=== PATIENT | female | born 1985 | race Hispanic/Latino ===

== ENCOUNTER 2019-05-20 19:30 | Inpatient (IN) | payer SELFPAY ==
[2019-05-20] MEDS ORDERED: AMOX/K CLAV 875 MG TAB ONE (20:22)
[2019-05-20] MEDS ORDERED: HYDROCODONE/APAP 5/325 MG TAB ONE (20:22)
[2019-05-20] MEDS ORDERED: TETANUS & DIPHTHERIA TOX,ADULT 0.5 ML VIAL ONE (20:23)
[2019-05-20] MEDS ORDERED: metroNIDAZOLE 500 MG TABLET ONE (20:33)
[2019-05-20] MEDS ORDERED: SMZ./TMP. 800/160 MG TABLET ONE (20:33)
--- NOTE | 2019-05-20 21:17 | RAD REPORT ---
EXAM DESCRIPTION: RAD - Hand Left 3 View - 05/20/2019 8:31 pm CLINICAL HISTORY: Hand pain, dog bite COMPARISON: None. FINDINGS: No fracture, dislocation or periosteal reaction noted. No foreign body or air in the soft tissues. Soft tissue swelling is present. IMPRESSION: Soft tissue swelling with no acute bone finding. No foreign body.
--- NOTE | 2019-05-20 21:18 | RAD REPORT ---
EXAM DESCRIPTION: RAD - Forearm Left - 05/20/2019 8:32 pm CLINICAL HISTORY: Arm pain, dog bite COMPARISON: None. FINDINGS: No fracture. No acute bone or joint finding. Small round 3 millimeter density is present i n the soft tissues anterolateral aspect of the distal forearm. There is contusion and edema in the so ft tissues in this region. No puncture wound site is noted. This is potentially a foreign body relate d to the dog bite. IMPRESSION: Small rounded 3 mm focal density in the soft tissues anterolateral aspect of the distal forearm is present along with contusion or edema in the soft tissues in this region. No acute bone or joint finding. The radiopaque density could be dog bite related foreign body.
--- NOTE | 2019-05-20 21:19 | RAD REPORT ---
EXAM DESCRIPTION: RAD - Knee Right 3 View - 05/20/2019 8:31 pm CLINICAL HISTORY: Dog bite in the right knee region, pain COMPARISON: None. FINDINGS: No fracture, dislocation or periosteal reaction.No joint effusion seen. No joint space shaan rowing. Spurring is seen at the quadriceps attachment. Contusion or edema changes are seen anterior t o the knee. No foreign body seen. No finding to suspect extension into the joint space. IMPRESSION: No air or foreign body in the soft tissues. No acute bone or joint finding.
--- NOTE | 2019-05-20 21:43 | EDPHYS ---
Physician Documentation [facility] Name: Radha Cordero Age: 33 yrs Sex: Female : 1985 Arrival Date: 05/20/2019 Time: 19:33 Bed 5 Private MD: ED Physician Brayan Hector HPI: 05/20 23:01 This 33 yrs old Female presents to ER via Ambulatory with complaints of Dog pm1 Bite. 23:01 The patient was bitten on the right hand and left hand and right knee and dorsal aspect pm1 of left forearm. 23:01 Onset: The symptoms/episode began/occurred yesterday. Animal information: Patient's two pm1 dogs. One adult and one puppy labrador. Secondary to the bite the patient reports a laceration, that is superficial, multiple puncture wounds. Associated signs and symptoms: Pertinent positives: pain at site, Pertinent negatives: fever, numbness distal to wound. Severity of symptoms: in the emergency department the symptoms are actually worse. The patient has not experienced similar symptoms in the past. The patient has not recently seen a physician. patient was trying to separate her two dogs that were fighting yesterday and she sustained abrasions and puncture wounds to her right knee and left forearm. superficial laceration to left 4th finger. abrasions to right hand. 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 - Social history:: Smoking status: Patient uses tobacco products, smokes one-half pack cigarettes per day, Patient uses alcohol, occasionally. - Ebola Screening: : No symptoms or risks identified at this time. ROS: 23:01 Constitutional: Negative for fever, chills, and weight loss, Eyes: Negative for injury, pm1 pain, redness, and discharge, ENT: Negative for injury, pain, and discharge, Neck: Negative for injury, pain, and swelling, Cardiovascular: Negative for chest pain, palpitations, and edema, Respiratory: Negative for shortness of breath, cough, wheezing, and pleuritic chest pain, Abdomen/GI: Negative for abdominal pain, nausea, vomiting, diarrhea, and constipation, Back: Negative for injury and pain. 23:01 Neuro: Negative for headache, weakness, numbness, tingling, and seizure. 23:01 MS/extremity: Positive for laceration to left 4th finger. Abrasions and puncture wounds to left forearm and right knee. Abrasions to right hand. Exam: 23:01 Constitutional: This is a well developed, well nourished patient who is awake, alert, pm1 and in no acute distress. Head/Face: Normocephalic, atraumatic. Neck: Trachea midline, no thyromegaly or masses palpated, and no cervical lymphadenopathy. Supple, full range of motion without nuchal rigidity, or vertebral point tenderness. No Meningismus. Chest/axilla: Normal chest wall appearance and motion. Nontender with no deformity. No lesions are appreciated. Cardiovascular: Regular rate and rhythm with a normal S1 and S2. No gallops, murmurs, or rubs. Normal PMI, no JVD. No pulse deficits. Respiratory: Lungs have equal breath sounds bilaterally, clear to auscultation and percussion. No rales, rhonchi or wheezes noted. No increased work of breathing, no retractions or nasal flaring. Abdomen/GI: Soft, non-tender, with normal bowel sounds. No distension or tympany. No guarding or rebound. No evidence of tenderness throughout. Back: No spinal tenderness. No costovertebral tenderness. Full range of motion. 23:01 Skin: Appearance: normal except for affected area, injury, abrasion(s), small abrasion noted, of the right hand and right knee, laceration(s), the wound is approximately 1.5 cm(s), of the dorsal aspect of middle phalanx of left ring finger, puncture(s), of the 2 on the palmar aspect of left forearm and 4 on the dorsal aspect of left forearm. 3 puncture wounds to right knee. Vital Signs: 19:54 BP 139 / 96; Pulse 93; Resp 16; Temp 98.2(O); Pulse Ox 100% on R/A; Weight 95.25 kg jb4 (R); Height 4 ft. 10 in. (147.32 cm) (R); Pain 8/10; 21:15 BP 127 / 85; Pulse 87; Resp 16; Pulse Ox 99% on R/A; jb4 22:35 BP 134 / 89; Pulse 87; Resp 16; Temp 97.8(O); Pulse Ox 98% on R/A; jb4 19:54 Body Mass Index 43.89 (95.25 kg, 147.32 cm) jb4 MDM: 19:49 Patient medically screened. pm1 20:58 Data reviewed: vital signs. Data interpreted: Pulse oximetry: on room air is 100 %. pm1 Interpretation: normal. 21:36 Physician consultation: Stalin Pedraza MD was called at 21:36, was contacted at 21:36, pm1 regarding patient's condition, and will see patient tomorrow, NPO at midnight, admit to hospitalist. 05/20 21:28 Order name: CBC with Diff; Complete Time: 23:01 pm1 05/20 21:28 Order name: CMP; Complete Time: 23:01 pm1 05/20 22:17 Order name: Urine Dipstick--Ancillary (enter results) [facility] 05/20 22:17 Order name: Urine --Ancillary (enter results) [facility] 05/20 22:18 Order name: Basic Metabolic Panel EDMS 05/20 22:18 Order name: Basic Metabolic Panel EDMS 05/20 19:54 Order name: Knee Right 3 View XRAY; Complete Time: 21:21 pm1 05/20 19:54 Order name: Hand Left 3 View XRAY; Complete Time: 21:21 pm1 05/20 22:18 Order name: CBC with Automated Diff EDMS 05/20 22:18 Order name: CBC with Automated Diff EDMS 05/20 22:18 Order name: Protime (+INR) EDMS 05/20 22:18 Order name: Protime (+INR) EDMS 05/20 22:18 Order name: PTT, Activated Partial Thromb EDMS 05/20 22:18 Order name: PTT, Activated Partial Thromb EDMS 05/20 19:54 Order name: Forearm Left XRAY; Complete Time: 21:21 pm1 05/20 21:28 Order name: IV Saline Lock; Complete Time: 21:56 pm1 05/20 21:43 Order name: Urine Dipstick-Ancillary (obtain specimen); Complete Time: 22:17 pm1 05/20 21:43 Order name: Urine Test (obtain specimen); Complete Time: 22:17 pm1 05/20 22:18 Order name: CONS Pharmacy Consult EDMN 05/20 22:18 Order name: CONS Pharmacy Consult EDMN 05/20 22:18 Order name: CONS Physician Consult [facility] 05/20 22:18 Order name: NPO EDMN 05/20 22:18 Order name: Regular EDMS Administered Medications: 20:20 Drug: Tetanus-Diphtheria Toxoid Adult 0.5 ml {Business Excellence Leader: [employer]. Exp: jb4 12/19/2020. Lot #: [id number]. } Route: IM; Site: right deltoid; 21:30 Follow up: Response: No adverse reaction jb4 20:20 Drug: [place] 5 mg-325 mg 1 tabs Route: PO; jb4 20:50 Follow up: Response: No adverse reaction; Pain is decreased; RASS: Alert and Calm (0) jb4 20:24 Not Given (Physician Discretion): Augmentin 875 mg PO once pm1 20:42 Drug: Bactrim (160 mg-800 mg (DS) 1 tablet Route: PO; jb4 21:31 Follow up: Response: No adverse reaction jb4 20:42 Drug: Flagyl 500 mg Route: PO; jb4 21:31 Follow up: Response: No adverse reaction jb4 Disposition: 05/20/19 21:43 Hospitalization ordered by Marlyn Stein for Observation. Preliminary diagnosis are Puncture wound with foreign body of left forearm, Bitten by dog. - Bed requested for Telemetry/MedSurg (observation). - Status is Observation. jb4 - Condition is Stable. - Problem is new. - Symptoms have improved. UTI on Admission? No Addendum: 05/25/2019 07:31 Co-signature as Attending Physician, Brayan Hector MD. g s Signatures: Dispatcher [employer] EDMN Radha Alvarado RN RN Chao Garza, FARM MANAGEMENT SUPERVISOR FARM MANAGEMENT SUPERVISOR pm1 Tacho Paul RN RN Brayan Burleson MD MD Corrections: (The following items were deleted from the chart) 05/20 22:22 21:43 Hospitalization Ordered by Marlyn Stein MD for Observation. Preliminary mw diagnosis is Puncture wound with foreign body of left forearmBitten by dog. Bed requested for Telemetry/MedSurg (observation). Status is Observation. Condition is Stable. Problem is new. Symptoms have improved. UTI on Admission? No. pm1 23:19 22:22 05/20/2019 21:43 Hospitalization Ordered by Marlyn Stein MD for Observation. jb4 Preliminary diagnosis is Puncture wound with foreign body of left forearmBitten by dog. Bed requested for Telemetry/MedSurg (observation). Status is Observation. Condition is Stable. Problem is new. Symptoms have improved. UTI on Admission? No. mw
--- NOTE | 2019-05-20 21:43 | ER ---
Nurse's Notes [facility] Name: Radha Cordero Age: 33 yrs Sex: Female : 1985 Arrival Date: 05/20/2019 Time: 19:33 Bed 5 Private MD: Diagnosis: Bitten by dog;Puncture wound with foreign body of left forearm Presentation: 05/20 19:46 Presenting complaint: Patient states: My dogs were fighting and I tried to separate jb4 them and got bit on my left forearm and right knee in the process. Today the pain puts me in tears. Transition of care: patient was not received from another setting of care. Onset of symptoms was May 19, 2019. Risk Assessment: Do you want to hurt yourself or someone else? Patient reports no desire to harm self or others. Initial Sepsis Screen: Does the patient meet any 2 criteria? No. Patient's initial sepsis screen is negative. Does the patient have a suspected source of infection? Yes: Skin breakdown/wound. Care prior to arrival: None. 19:46 Method Of Arrival: Ambulatory jb4 19:46 Acuity: KHOI 4 jb4 Triage Assessment: 19:54 Bite description: bite sustained to left hand, dorsal aspect of left forearm and right jb4 knee by a dog, animal information: vaccination(s) is current. 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 - Social history:: Smoking status: Patient uses tobacco products, smokes one-half pack cigarettes per day, Patient uses alcohol, occasionally. - Ebola Screening: : No symptoms or risks identified at this time. Screenin:54 Abuse screen: Denies threats or abuse. Nutritional screening: No deficits noted. jb4 Tuberculosis screening: No symptoms or risk factors identified. Fall Risk None identified. Assessment: 19:54 General: Appears in no apparent distress. uncomfortable, Behavior is calm, cooperative, jb4 appropriate for age. Pain: Complains of pain in dorsal aspect of left forearm and right knee Pain radiates to left elbow Pain currently is 7 out of 10 on a pain scale. Quality of pain is described as stabbing. Neuro: Level of Consciousness is awake, alert, obeys commands, Oriented to person, place, time, situation. Cardiovascular: Patient's skin is warm and dry. Respiratory: Airway is patent Respiratory effort is even, unlabored, Respiratory pattern is regular, symmetrical. GI: No deficits noted. No signs and/or symptoms were reported involving the gastrointestinal system. : No deficits noted. No signs and/or symptoms were reported regarding the genitourinary system. EENT: No deficits noted. No signs and/or symptoms were reported regarding the EENT system. Derm: Skin bite seymour with broken skin to the left forearm, left hand, and right knee. Skin is pink, warm \T\ dry. Musculoskeletal: Circulation, motion, and sensation intact. Range of motion: intact in all extremities. Injury Description: Bite sustained to dorsal aspect of left forearm and right knee Laceration sustained to dorsal aspect of middle phalanx of left ring finger. 20:19 Reassessment: [place] PD notified of dog bite. jb4 20:53 Reassessment: Patient appears in no apparent distress at this time. Patient and/or jb4 family updated on plan of care and expected duration. Pain level reassessed. Patient is alert, oriented x 3, equal unlabored respirations, skin warm/dry/pink. 22:00 Reassessment: Patient appears in no apparent distress at this time. Patient and/or jb4 family updated on plan of care and expected duration. Pain level reassessed. Patient is alert, oriented x 3, equal unlabored respirations, skin warm/dry/pink. 22:35 Reassessment: Patient appears in no apparent distress at this time. Patient and/or jb4 family updated on plan of care and expected duration. Pain level reassessed. Patient is alert, oriented x 3, equal unlabored respirations, skin warm/dry/pink. 23:05 Reassessment: Reports Called to NADER Dodd. jb4 Vital Signs: 19:54 BP 139 / 96; Pulse 93; Resp 16; Temp 98.2(O); Pulse Ox 100% on R/A; Weight 95.25 kg jb4 (R); Height 4 ft. 10 in. (147.32 cm) (R); Pain 8/10; 21:15 BP 127 / 85; Pulse 87; Resp 16; Pulse Ox 99% on R/A; jb4 22:35 BP 134 / 89; Pulse 87; Resp 16; Temp 97.8(O); Pulse Ox 98% on R/A; jb4 19:54 Body Mass Index 43.89 (95.25 kg, 147.32 cm) jb4 ED Course: 19:33 Patient arrived in ED. cf2 19:42 Chao Garza NP is PHCP. pm1 19:42 Brayan Hector MD is Attending Physician. pm1 19:45 Tacho Paul RN is Primary Nurse. jb4 19:48 Triage completed. jb4 19:54 Arm band placed on right wrist. jb4 19:54 Patient has correct armband on for positive identification. Bed in low position. Call jb4 light in reach. Side rails up X 1. Pulse ox on. NIBP on. 20:31 Knee Right 3 View XRAY In Process Unspecified. EDMS 20:31 Hand Left 3 View XRAY In Process Unspecified. EDMS 20:32 Forearm Left XRAY In Process Unspecified. EDMS 21:41 Marlyn Stein MD is Hospitalizing Provider. pm1 21:51 Inserted saline lock: 22 gauge in right forearm, using aseptic technique. rr5 22:33 No provider procedures requiring assistance completed. Patient admitted, IV remains in jb4 place. Administered Medications: 20:20 Drug: Tetanus-Diphtheria Toxoid Adult 0.5 ml {Estate Planning Paralegal: [employer]. Exp: jb4 12/19/2020. Lot #: [id number]. } Route: IM; Site: right deltoid; 21:30 Follow up: Response: No adverse reaction jb4 20:20 Drug: [place] 5 mg-325 mg 1 tabs Route: PO; jb4 20:50 Follow up: Response: No adverse reaction; Pain is decreased; RASS: Alert and Calm (0) jb4 20:24 Not Given (Physician Discretion): Augmentin 875 mg PO once pm1 20:42 Drug: Bactrim (160 mg-800 mg (DS) 1 tablet Route: PO; jb4 21:31 Follow up: Response: No adverse reaction jb4 20:42 Drug: Flagyl 500 mg Route: PO; jb4 21:31 Follow up: Response: No adverse reaction jb4 Outcome: 21:43 Decision to Hospitalize by Provider. pm1 23:06 Admitted to Med/surg accompanied by tech, via wheelchair, room 205, with chart, Report jb4 called to NADER Dodd 23:06 Condition: stable 23:06 Discharge instructions given to patient, family, Instructed on the need for admit, Demonstrated understanding of instructions. 23:19 Patient left the ED. jb4 Signatures: Dispatcher [employer] EDMS Chao Garza, DEONTE STERILE PROCESSING TECHNOLOGIST pm1 Tacho Paul RN RN jb4 Mikey Caceres RN RN rr5 Curtis Duff cf2
[2019-05-20] MEDS ORDERED: ONDANSETRON 4 MG/2 ML VIAL IV PRN (22:13)
[2019-05-20] MEDS ORDERED: ACETAMINOPHEN 500 MG TAB PO PRN (22:13)
[2019-05-20 22:34] LABS: Absolute Lymphocytes (CBC) 4.8 K/uL (0.7-4.9); Basophils % 1.1 % (0-1.3); Hematocrit 39.6 % (36.0-45.0); Lymphocytes % 48.4 % (15.3-44.8); MPV 6.8 fL (7.6-11.3); RBC Red Blood Cell Count 4.12 M/uL (3.86-4.86)
[2019-05-20 22:45] LABS: ALT/SGPT 26 U/L (12-78); AST/SGOT 17 U/L (15-37); Albumin 4.1 g/dL (3.4-5.0); Alkaline Phosphatase 48 U/L (45-117); BUN Blood Urea Nitrogen 13 mg/dL (7-18); Bicarbonate 24 mmol/L (21-32); Bilirubin Total 0.2 mg/dL (0.2-1.0); Glucose Level 94 mg/dL (74-106); Potassium 3.7 mmol/L (3.5-5.1); Protein, Total 7.6 g/dL (6.4-8.2); Sodium Level 141 mmol/L (136-145)
[2019-05-20 23:08] LABS: Urine Blood TRACE (NEG); Urine Glucose NEGATIVE (NEG); Urine Protein NEGATIVE (NEG); Urine Specific Gravity 1.025 (1.005-1.030); Urine pH 5.5 (5.0-7.0)
[2019-05-20 23:26] VITALS: BMI 46.3
[2019-05-21] MEDS: Levofloxacin 750mg IV 750 MG/150 ML BAG IV SCH ×2 (00:06→22:39)
[2019-05-21] MEDS: NA CHLORIDE 0.9% 1,000 ML IV SCH ×4 (00:06→19:00)
[2019-05-21] MEDS: MORPHINE 4 MG/ML SYR IV PRN ×6 (00:07→21:41)
[2019-05-21] MEDS ORDERED: VANCOMYCIN 1.75 GM in NA CHLORIDE 0.9% 500 ML IVPB SCH (01:00)
[2019-05-21] MEDS ORDERED: VANCOMYCIN 1 GM/VIAL ONE (01:08)
[2019-05-21] MEDS ORDERED: NA CHLORIDE 0.9% 500 ML ONE (01:11)
[2019-05-21] MEDS: CYCLOBENZAPRINE 10 MG TAB PO PRN ×2 (01:44→11:00)
[2019-05-21 05:49] LABS: Absolute Lymphocytes (CBC) 4.3 K/uL (0.7-4.9); Hematocrit 36.1 % (36.0-45.0); Lymphocytes % 46.2 % (15.3-44.8); MPV 7.1 fL (7.6-11.3); RBC Red Blood Cell Count 3.77 M/uL (3.86-4.86)
[2019-05-21 05:52] LABS: Protime INR 1.04
[2019-05-21 05:58] LABS: BUN Blood Urea Nitrogen 13 mg/dL (7-18); Bicarbonate 25 mmol/L (21-32); Glucose Level 111 mg/dL (74-106); Sodium Level 140 mmol/L (136-145)
[2019-05-21] MEDS ORDERED: DIPHENHYDRAMINE 50 MG/ML VIAL IV ONE (05:59)
[2019-05-21] MEDS ORDERED: CLINDAMYCIN IV 150 MG/ML (6 mL) VIAL ONE (06:29)
[2019-05-21] MEDS ORDERED: NA CHLORIDE 0.9% 50 ML ONE (06:30)
[2019-05-21] MEDS: CLINDAMYCIN PHOSPHATE 600 MG in NA CHLORIDE 0.9% 50 ML IV SCH ×2 (06:37→16:20)
[2019-05-21 08:06] LABS: Anisocytosis 1+; Blood Morphology Comment NOTED (NOT SEEN); Hypochromasia 1+; Platelet Estimate ADEQ; Stomatocytes 1+
[2019-05-21] MEDS: GABAPENTIN 300 MG CAP PO SCH ×4 (08:51→21:37)
[2019-05-21] MEDS: METFORMIN ER 500 MG TAB PO SCH ×2 (08:51→21:37)
--- NOTE | 2019-05-21 09:22 | P.HP ---
Certification for Inpatient Patient admitted to: Inpatient With expected LOS: >2 Midnights Patient will require the following post-hospital care: None Practitioner: I am a practitioner with admitting privileges, knowledge of patient current condition, hospital course, and medical plan of care. Services: Services provided to patient in accordance with Admission requirements found in Title 42 Section 412.3 of the Code of Federal Regulations Patient History Date of Service: 05/20/19 Reason for admission: Dog bite/ foreign body History of Present Illness: Patient is a 33-year-old female who came to the hospital with a dog bite on her left arm. She has 2 Labrador retriever's and they apparently got into a fight. She decided to get in between them and she suffered bites on her left arm. Her arm was red and swollen on arrival to the ER. X-rays were performed and she appears to have a baby tooth in her left forearm. One of the dogs was a . Patient will be admitted to the hospital for retrieval of the foreign body in her left forearm. This will hopefully be done by surgery in the morning. We may need better imaging studies to see exactly where this is located. Continue with IV antibiotics and pain control at this time. Allergies Penicillins Allergy (Verified 05/20/19 23:57) Hives/Rash vancomycin Allergy (Verified 05/21/19 08:07) Itching aspirin Adverse Reaction (Verified 05/20/19 23:57) Shortness of breath Home Medications: Amitriptyline HCl 75 mg PO BEDTIME 05/20/19 Cyclobenzaprine [Flexeril*] 10 mg PO TID 05/20/19 Gabapentin 300 mg PO TID 05/20/19 Metformin ER [Glucophage ER*] 500 mg PO BID 05/20/19 - Past Medical/Surgical History Has patient received pneumonia vaccine in the past: No Diabetic: No -: Polycystic ovarian syndrome -: Asthma -: migraine -: spot in the brain that create stroke like symptoms like numbness whole body -: left knee sx, x 2 -: cholecystectomy -: left falopian tube with cyst removed - Family History Father Family History: Reviewed- Non-Contributory - Social History Smoking Status: Current every day smoker Alcohol use: Yes Place of Residence: Home Review of Systems 10-point ROS is otherwise unremarkable Physical Examination - Vital Signs Temperature: 97.7 F Blood Pressure: 105/56 Pulse: 86 Respirations: 16 Pulse Ox (%): 96 - Physical Exam General: Alert, In no apparent distress, Oriented x3 HEENT: Atraumatic, PERRLA, Mucous membr. moist/pink, EOMI, Sclerae nonicteric Neck: Supple, 2+ carotid pulse no bruit, No LAD, Without JVD or thyroid abnormality Respiratory: Clear to auscultation bilaterally, Normal air movement Cardiovascular: Regular rate/rhythm, Normal S1 S2, No murmurs Gastrointestinal: Normal bowel sounds, Soft and benign, Non-distended, No tenderness Musculoskeletal: Clubbing, Swelling, Erythema, Tenderness, Warmth Integumentary: No rashes Neurological: Normal gait, Normal speech, Normal strength at 5/5 x4 extr, Normal tone, Sensation intact, Cranial nerves 3-12 intact, Normal affect Lymphatics: No axilla or inguinal lymphadenopathy - Studies Laboratory Data (last 24 hrs) 05/20/19 22:20: Sodium 141, Potassium 3.7, BUN 13, Creatinine 0.58, Glucose 94, Total Bilirubin 0.2, AST 17, ALT 26, Alkaline Phosphatase 48 05/20/19 22:20: WBC 9.8, Hgb 13.4, Hct 39.6, Plt Count 368 Assessment & Plan - Problems (Diagnosis) (1) Cellulitis of forearm, left Current Visit: Yes Status: Acute (2) Foreign body in left forearm Current Visit: Yes Status: Acute (3) Dog bite of extremity Current Visit: Yes Status: Acute - Plan 1. Continue with IV antibiotic 2. Surgical consultation 3. Gentle IV hydration 4. Monitor CBC 5. Strict blood sugar monitoring 6. Pain control 7. GI and DVT prophylaxis Discharge Plan: Home Plan to discharge in: Greater than 2 days - Advance Directives Does patient have a Living Will: No Does patient have a Durable POA for Healthcare: No - Code Status/Comfort Care Code Status Assessed: Yes Code Status: Full Code Critical Care: No Time Spent Managing PTS Care (In Minutes): 45
--- NOTE | 2019-05-21 13:20 | P.PN ---
Subjective Date of Service: 05/21/19 Primary Care Provider: CHRISTOPHER Dykes Chief Complaint: Dog bite/ foreign body Subjective: Other (Overall stable. No significant pain noted.) Physical Examination - Vital Signs Temperature: 98.0 F Blood Pressure: 158/96 Pulse: 86 Respirations: 15 Pulse Ox (%): 97 - Physical Exam General: Alert, In no apparent distress, Oriented x3, Cooperative HEENT: Atraumatic Neck: Supple Respiratory: Clear to auscultation bilaterally, Normal air movement Cardiovascular: Normal pulses, Regular rate/rhythm Integumentary: Other (Puncture wounds to the left forearm and right knee. Mild swelling noted. No significant erythema.) - Studies Laboratory Data (last 24 hrs) 05/20/19 22:20: Sodium 141, Potassium 3.7, BUN 13, Creatinine 0.58, Glucose 94, Total Bilirubin 0.2, AST 17, ALT 26, Alkaline Phosphatase 48 05/20/19 22:20: WBC 9.8, Hgb 13.4, Hct 39.6, Plt Count 368 Medications List Reviewed: Yes Assessment & Plan Discharge Plan: Home Plan to discharge in: 24 Hours Physician Review Additional Text: Impression: Left forearm and right knee cellulitis status post dog bite with possible foreign body to the left forearm Plan: Patient will remain NPO. Case discussed with surgery. Continue IV antibiotic therapy at this time. Surgery will determine whether not to take the patient to the OR for possible removal of foreign body. Continue IV antibiotic therapy for at least 24 hr. Possible discharge in the next 1-2 days pending surgery evaluation and treatment. Time Spent Managing Pts Care (In Minutes): 55
[2019-05-21] MEDS: AMITRIPTYLINE 25 MG TAB PO SCH (21:37)
[2019-05-22] MEDS: CLINDAMYCIN PHOSPHATE 600 MG in NA CHLORIDE 0.9% 50 ML IV SCH ×3 (02:17→16:48)
[2019-05-22] MEDS: MORPHINE 4 MG/ML SYR IV PRN ×4 (02:24→21:47)
[2019-05-22] MEDS: NA CHLORIDE 0.9% 1,000 ML IV SCH ×4 (05:00→16:40)
--- NOTE | 2019-05-22 08:46 | P.PN ---
Subjective Date of Service: 05/22/19 Primary Care Provider: CHRISTOPHER Dykes Chief Complaint: Dog bite/ foreign body Subjective: Improving Physical Examination - Vital Signs Temperature: 98.2 F Blood Pressure: 92/53 Pulse: 99 Respirations: 20 Pulse Ox (%): 98 - Physical Exam General: Alert, In no apparent distress, Oriented x3, Cooperative HEENT: Atraumatic Neck: Supple Respiratory: Clear to auscultation bilaterally, Normal air movement Cardiovascular: Normal pulses, Regular rate/rhythm Gastrointestinal: Normal bowel sounds, Soft and benign, Non-distended, No masses , No rebound, No guarding Integumentary: Other (Erythema to the left arm and right knee improved. Puncture wounds noted.) - Studies Medications List Reviewed: Yes Assessment & Plan Discharge Plan: Home Plan to discharge in: 24 Hours Physician Review Additional Text: Impression: Left forearm and right knee cellulitis status post dog bite with possible foreign body to the left forearm Plan: Surgery recommended plastic surgery to evaluate and treat patient. Patient currently NPO at this time in preparation for possible surgical intervention by plastic surgery. Foreign body may need to be removed. Swelling and erythema improved with IV antibiotic therapy. Possible discharge as early as today after possible surgical intervention. Will discuss with plastic surgery on plan of care. Time Spent Managing Pts Care (In Minutes): 55
[2019-05-22] MEDS: GABAPENTIN 300 MG CAP PO SCH ×4 (09:00→20:37)
[2019-05-22] MEDS: METFORMIN ER 500 MG TAB PO SCH ×2 (09:00→20:37)
[2019-05-22] MEDS ORDERED: LIDOCAINE 1% MPF 5 ML VIAL ONE ×2 (13:59→14:37)
[2019-05-22] MEDS ORDERED: MIDAZOLAM HCL 2 MG/2 ML INJ ONE (14:28)
[2019-05-22] MEDS ORDERED: FENTANYL CITR 100 MCG/2 ML ONE (14:37)
[2019-05-22] MEDS ORDERED: PROPOFOL 200 MG/20 ML VIAL IV ONE (14:37)
[2019-05-22] MEDS ORDERED: ONDANSETRON 4 MG/2 ML VIAL ONE (15:24)
--- NOTE | 2019-05-22 15:41 | RAD REPORT ---
EXAM DESCRIPTION: RAD - Forearm Left - 05/22/2019 3:34 pm CLINICAL HISTORY: Foreign body removal, dog bite COMPARISON: May 20 FINDINGS: Fluoroscopic assisted removal of a foreign body was performed. There were 6 fluoroscopic C -arm views obtained. Fluoro time was 1.7 minutes. No suspicious or unexpected finding.
[2019-05-22] MEDS: HYDROMORPHONE HCL 1 MG/ML INJ ONE ×2 (15:50→15:59)
[2019-05-22] MEDS: CYCLOBENZAPRINE 10 MG TAB PO PRN (16:41)
[2019-05-22] MEDS: CODEINE 30MG/APAP 300MG TAB PO PRN (16:41)
[2019-05-22] MEDS ORDERED: CODEINE 30MG/APAP 300MG TAB PO SCH (17:00)
[2019-05-22] MEDS: AMITRIPTYLINE 25 MG TAB PO SCH (20:37)
[2019-05-22] MEDS: Levofloxacin 750mg IV 750 MG/150 ML BAG IV SCH (22:46)
[2019-05-23] MEDS: CLINDAMYCIN PHOSPHATE 600 MG in NA CHLORIDE 0.9% 50 ML IV SCH ×3 (00:44→16:07)
--- NOTE | 2019-05-23 01:45 | CON ---
History Of Present Illness: A 33-year-old, female, right-hand dominant, bitten by her own d og, left forearm and left ring finger yesterday. Tetanus shot was given. surgeries of ri ght and left knees, excision of ovaries, gallbladder and . Habits: Smokes half pack a day. Drinks alcohol occasionally. Medications: Penicillin, aspirin, metformin, gabapentin, Flexeril. She is 4 feet 10 inches, 220 pounds. She has transverse laceration of the dorsal left ring finger at the PIP. Laceration at the volar forearm. X-ray shows a possible foreign body. Assessment: Dog bite. Plan: Exploration and debridement and possible foreign body removal. ABDULAZIZ/BENJAMIN Voice ID: [id number] Report ID: [id number]
--- NOTE | 2019-05-23 02:06 | OP ---
Surgeon: Thai Wallace MD Delinquency Counselor: Abhijeet. Preoperative Diagnosis: Dog bite to the left ring finger and left forearm. Postoperative Diagnosis: Dog bite to the left ring finger and left forearm. Procedure Performed: Debridement of skin and subcutaneous tissue of left ring finger and left forear m. Anesthesia: General. Procedure In Detail: After satisfactory induction of general anesthesia, the C-arm was brought in th e field. We scanned the forearm looking for foreign body. Foreign body was located on the mid axial on the lateral view, not near any lacerations and the object was round. There was also more dorsal laceration more volar. This was not related to the current dog big. Then, left arm was prepped with Betadine scrub, Betadine paint. Dry sterile drapes placed in the usual manner. Arm was elevated, e xsanguinated using an Esmarch. Tourniquet was inflated to 250 mmHg. Hand was placed on the Roto Loc k table. Elliptical incision was made around the dorsal surface of the left ring finger at the PIP. 2 lacerations of the dog tooth caught the finger both radially and ulnarly. The 2 were made 1 lacer ation. Wound was explored. The laceration was down to the extensor tendon, but not at the joint or bone. Cultures were taken of watery fluid and jet lavage irrigated with 1 L of Betadine solution. T hen, the volar forearm was explored with incision around the open wound of the forearm to mid forearm level. The laceration was down to muscle. The wound was cultured and jet lavaged irrigated with ab out 2 L of Betadine solution. Tourniquet was released. Electrocautery was used for hemostasis. Bot h wounds were packed with Betadine-soaked 1/4-inch Nu Gauze, 2-inch Jose Daniel to ring finger, Kerlix on forearm. Patient tolerated the procedure well and r eturned to Recovery. ABDULAIZZ/BENJAMIN Voice ID: [id number] Report ID: [id number]
[2019-05-23] MEDS: MORPHINE 4 MG/ML SYR IV PRN ×4 (02:55→20:05)
[2019-05-23] MEDS: CODEINE 30MG/APAP 300MG TAB PO PRN ×4 (03:46→23:53)
[2019-05-23] MEDS: GABAPENTIN 300 MG CAP PO SCH ×3 (08:35→20:05)
[2019-05-23] MEDS: METFORMIN ER 500 MG TAB PO SCH ×2 (08:35→20:05)
[2019-05-23] MEDS: NA CHLORIDE 0.9% 1,000 ML IV SCH ×2 (08:43→11:00)
--- NOTE | 2019-05-23 13:52 | P.PN ---
Subjective Date of Service: 05/23/19 Primary Care Provider: CHRISTOPHER Dykes Chief Complaint: Dog bite/ foreign body Subjective: Doing well Physical Examination - Vital Signs Temperature: 98.2 F Blood Pressure: 111/60 Pulse: 104 Respirations: 20 Pulse Ox (%): 94 - Physical Exam General: Alert, In no apparent distress, Oriented x3, Cooperative HEENT: Atraumatic Neck: Supple Respiratory: Clear to auscultation bilaterally Cardiovascular: Normal pulses Integumentary: Other (Bandages to the left upper extremity. No significant erythema to the right knee) - Studies Medications List Reviewed: Yes Assessment & Plan Discharge Plan: Home Plan to discharge in: 24 Hours Physician Review Additional Text: Impression: Left forearm and right knee cellulitis status post dog bite with possible foreign body to the left forearm status post debridement of skin/subcutaneous tissue of the left ring finger and left forearm Polycystic ovarian syndrome Chronic pain Plan: Left forearm and right knee cellulitis status post dog bite with possible foreign body to the left forearm status post debridement of skin/subcutaneous tissue of the left ring finger and left forearm: Surgery surgery performed debridement of skin and subcutaneous tissue of the left ring finger and left forearm. This has remained stable. Continue IV antibiotic therapy-Levaquin and clindamycin. Will provide medication for pain. Will discuss with plastic surgery for plan of care. Hospitalist Dr. Johnson will continue her care tomorrow. Polycystic ovarian syndrome: Continue with metformin. Chronic pain: Patient will continue with her medication gabapentin and muscle relaxer. Time Spent Managing Pts Care (In Minutes): 55
[2019-05-23] MEDS ORDERED: ENOXAPARIN 40 MG/0.4 ML SQ SCH (17:00)
[2019-05-23] MEDS: AMITRIPTYLINE 25 MG TAB PO SCH (20:04)
[2019-05-23] MEDS: Levofloxacin 750mg IV 750 MG/150 ML BAG IV SCH (22:01)
[2019-05-24] MEDS: CLINDAMYCIN PHOSPHATE 600 MG in NA CHLORIDE 0.9% 50 ML IV SCH ×2 (00:01→09:00)
[2019-05-24] MEDS: MORPHINE 4 MG/ML SYR IV PRN ×3 (02:36→14:30)
[2019-05-24 06:19] LABS: BUN Blood Urea Nitrogen 8 mg/dL (7-18); Bicarbonate 28 mmol/L (21-32); Glucose Level 109 mg/dL (74-106); Magnesium 1.8 mg/dL (1.8-2.4); Potassium 3.8 mmol/L (3.5-5.1); Sodium Level 140 mmol/L (136-145)
[2019-05-24 06:41] LABS: Absolute Lymphocytes (CBC) 4.6 K/uL (0.7-4.9); Basophils % 0.8 % (0-1.3); Hematocrit 33.6 % (36.0-45.0); Lymphocytes % 53.3 % (15.3-44.8); MPV 7.1 fL (7.6-11.3); RBC Red Blood Cell Count 3.47 M/uL (3.86-4.86)
[2019-05-24] MEDS: GABAPENTIN 300 MG CAP PO SCH ×2 (09:00→12:57)
[2019-05-24] MEDS: METFORMIN ER 500 MG TAB PO SCH (09:00)
[2019-05-24] MEDS ORDERED: MAGNESIUM SULFATE 1 gm IVPB 1 GM/100 ML BAG IV ONE (09:00)
[2019-05-24] MEDS ORDERED: Ringers Lactate 1,000 ML IV ONE (09:41)
[2019-05-24] MEDS ORDERED: NA CHLORIDE 0.9% 1,000 ML ONE (09:59)
[2019-05-24] MEDS ORDERED: LIDOCAINE 1% MPF 5 ML VIAL ONE (10:42)
[2019-05-24] MEDS ORDERED: KETOROLAC 30 MG/ML INJ ONE (10:42)
[2019-05-24] MEDS ORDERED: ONDANSETRON 4 MG/2 ML VIAL ONE (10:42)
[2019-05-24] MEDS ORDERED: FENTANYL CITR 100 MCG/2 ML ONE (10:42)
[2019-05-24] MEDS ORDERED: MIDAZOLAM HCL 2 MG/2 ML INJ ONE (10:42)
[2019-05-24] MEDS ORDERED: PROPOFOL 200 MG/20 ML VIAL IV ONE (10:42)
[2019-05-24] MEDS: MEPERIDINE HCL 50 MG/ML ONE ×2 (11:42→11:48)
[2019-05-24 12:08] VITALS: O2SAT 99
[2019-05-24] MEDS: CODEINE 30MG/APAP 300MG TAB PO PRN ×2 (12:57→16:04)
[2019-05-24] MEDS: CYCLOBENZAPRINE 10 MG TAB PO PRN (12:57)
--- NOTE | 2019-05-24 16:19 | P.DS ---
Admission Date: 05/20/19 Discharge Date: 05/24/19 Primary Care Provider: CHRISTOPHER Dykes Disposition: ROUTINE DISCHARGE Discharge Condition: GOOD Reason for Admission: Dog bite/ foreign body Consultations: Plastic Surgery Procedures: I& D - Problems (1) Dog bite of extremity Current Visit: Yes Status: Acute (2) Foreign body in left forearm Current Visit: Yes Status: Acute Qualifiers: Encounter type: initial encounter Qualified Code(s): S50.852A - Superficial foreign body of left forearm, initial encounter (3) Cellulitis of forearm, left Current Visit: Yes Status: Acute Brief History of Present Illness: Patient is a 33-year-old female who came to the hospital with a dog bite on her left arm. She has 2 Labrador retriever's and they apparently got into a fight. She decided to get in between them and she suffered bites on her left arm. Her arm was red and swollen on arrival to the ER. X-rays were performed and she appears to have a baby tooth in her left forearm. One of the dogs was a . Patient will be admitted to the hospital for retrieval of the foreign body in her left forearm. This will hopefully be done by surgery in the morning. We may need better imaging studies to see exactly where this is located. Continue with IV antibiotics and pain control at this time. Hospital Course: Overall during the hospital stay patient reamained stable. Pt was admitted to the hospital after sustaining a dog bite and Foreign body in the left arm. Plastic surgery was consulted who took patient for surgery and did Incision and drainage. Pt did well overall. Blood and wound culture where collected. Pt did well overall and thus DC home. Vital Signs/Physical Exam: Temp Pulse Resp BP Pulse Ox 98.7 F 82 16 137/89 99 05/24/19 12:12 05/24/19 12:12 05/24/19 12:12 05/24/19 12:12 05/24/19 08:00 General: Alert, In no apparent distress HEENT: Atraumatic, PERRLA, EOMI Neck: Supple, JVD not distended Respiratory: Clear to auscultation bilaterally, Normal air movement Cardiovascular: Regular rate/rhythm, Normal S1 S2 Gastrointestinal: Normal bowel sounds, No tenderness Musculoskeletal: No tenderness Integumentary: No rashes Neurological: Normal speech, Normal tone, Normal affect Lymphatics: No axilla or inguinal lymphadenopathy Laboratory Data at Discharge: WBC 8.5 K/uL (4.3-10.9) 05/24/19 05:43 Hgb 11.5 g/dL (12.0-15.0) L 05/24/19 05:43 Hct 33.6 % (36.0-45.0) L 05/24/19 05:43 Plt Count 323 K/uL (152-406) 05/24/19 05:43 PT 12.2 SECONDS (9.5-12.5) 05/21/19 05:22 INR 1.04 05/21/19 05:22 APTT 35.7 SECONDS (24.3-36.9) 05/21/19 05:22 Sodium 140 mmol/L (136-145) 05/24/19 05:43 Potassium 3.8 mmol/L (3.5-5.1) 05/24/19 05:43 BUN 8 mg/dL (7-18) 05/24/19 05:43 Creatinine 0.70 mg/dL (0.55-1.3) 05/24/19 05:43 Glucose 109 mg/dL (74-106) H 05/24/19 05:43 Magnesium 1.8 mg/dL (1.8-2.4) 05/24/19 05:43 Total Bilirubin 0.2 mg/dL (0.2-1.0) 05/20/19 22:20 AST 17 U/L (15-37) 05/20/19 22:20 ALT 26 U/L (12-78) 05/20/19 22:20 Alkaline Phosphatase 48 U/L (45-117) 05/20/19 22:20 Home Medications: Amitriptyline HCl 75 mg PO BEDTIME 05/20/19 Cyclobenzaprine [Flexeril*] 10 mg PO TID 05/20/19 Gabapentin 300 mg PO TID 05/20/19 Metformin ER [Glucophage ER*] 500 mg PO BID 05/20/19 Codeine/APAP [Tylenol #3*] 1 tab PO Q8H PRN #10 tab 05/24/19 New Medications: Codeine/APAP [Tylenol #3*] 1 tab PO Q8H PRN #10 tab PRN Reason: Pain Scale 5-7 (Moderate) Diet: Regular Activity: Ad genny Followup: Thai Wallace MD [ACTIVE - CAN ADMIT] -
[2019-05-24 16:40] VITALS: BP 113/66; TEMP 97.1
--- NOTE | 2019-05-24 22:49 | OP ---
Surgeon: Thai Wallace MD Photoresist Contact Printer: Abhijeet. Preoperative Diagnosis: Dog bite to the left ring finger, left forearm, and right knee. Postoperative Diagnosis: Dog bite to the left ring finger, left forearm, and right knee. Procedure Performed: Debridement of skin and subcutaneous tissue of the right knee, left forearm and left ring finger, simple closure 2 cm wound of the left ring finger. Anesthesia: General. Procedure In Detail: After satisfactory induction of general seizure, the right knee and left arm we re prepped with Betadine scrub, Betadine paint, dry sterile drapes applied in the usual manner. The left arm was approached first. A curette was used to debride the skin and subcutaneous tissue of the left forearm, volar, and left ring finger. Then the wound was jet lavaged, irrigated with about 1 L of dilute Betadine solution. Electrocautery was used for hemostasis. A Sanford drain was sewn in p lace using a 4-0 Prolene suture, 1/4-inch, and the forearm wound was left open. The finger was close d with vertical mattress simple sutures of 4-0 Prolene sutures. Dressed with Xeroform and 2-inch Kli ng. The forearm was covered with 4 x 4. The right knee had elliptical incision performed approximat tc 2 x 1 cm and then curetted. Cultures were taken. Then the wound was jet lavaged, irrigated with 2 L of dilute Betadine solution and then a 1/4-inch Sanford drain was placed in the wound, was sewn in place with 2-0 silk. Dressings consisted of 4 x 4's and tape. Patient tolerated the procedure well and returned to Recovery. ABDULAZIZ/BENJAMIN Voice ID: [id number] Report ID: [id number]
== END 2019-05-24 16:35 | disposition home or self-care (01) | DRG 902 ==
LOC: ER 19:30 → 2ND 23:02
PROVIDERS: ADMIT Family Medicine; ATTEND Family Medicine
PROC: 0JBH0ZZ Excision of Left Lower Arm Subcutaneous Tissue and Fascia, Open Approach (ICD-10-PCS; 2019-05-22)
PROC: 0JBK0ZZ Excision of Left Hand Subcutaneous Tissue and Fascia, Open Approach (ICD-10-PCS; principal; 2019-05-22 13:00)
PROC: 0JBK0ZZ Excision of Left Hand Subcutaneous Tissue and Fascia, Open Approach (ICD-10-PCS; 2019-05-24)
PROC: 0JBH0ZZ Excision of Left Lower Arm Subcutaneous Tissue and Fascia, Open Approach (ICD-10-PCS; 2019-05-24)
PROC: 0JCH0ZZ Extirpation of Matter from Left Lower Arm Subcutaneous Tissue and Fascia, Open Approach (ICD-10-PCS; 2019-05-24)
DX: S51.842A Puncture wound with foreign body of left forearm, initial encounter (principal); L03.114 Cellulitis of left upper limb; L03.115 Cellulitis of right lower limb; S51.852A Open bite of left forearm, initial encounter; S61.255A Open bite of left ring finger without damage to nail, initial encounter; S71.151A Open bite, right thigh, initial encounter; F17.210 Nicotine dependence, cigarettes, uncomplicated; E28.2 Polycystic ovarian syndrome; W54.0XXA Bitten by dog, initial encounter; Y93.9 Activity, unspecified; Y92.9 Unspecified place or not applicable
CPT/HCPCS: 36415; 80048; 80053; 81003; 81025; 83735; 85025; 85610; 85730; 87070; 87075; 87205; 88304; 90471; 90714; 99285; J1170; J1200; J1650; J2175; J2250; J2405; J2704; J3010; J3475; J7030; J7040; J7120; S0077